=== PATIENT | female | born 1985 | race Two or more races ===

== ENCOUNTER → 2016-04-27 | Outpatient (CLI) | payer OTHER ==
--- NOTE | 2016-04-27 16:38 | RAD ---
Thyroid ultrasound, 04/27/2016: History: Right neck mass The right lobe of the gland measures 5.5 x 2.2 x 2.0 cm while the left lobe of the gland measures 4.2 x 1.4 x 1.9 cm. There is a 2.3 x 1.6 x 1.7 cm mass in the midportion of the right lobe of the gland. It demonstrates heterogeneous solid and cystic components. There is internal color flow. No thyroid calcifications are seen. No other thyroid mass is evident. IMPRESSION: Moderate sized complex mass in the right lobe of the thyroid gland as described above. The sonographic characteristics of this mass are nonspecific. Ultrasound-guided biopsy should be considered for further evaluation.
== END | disposition home or self-care (01) ==
LOC: US 15:53
PROVIDERS: ATTEND Family Medicine
DX: E07.9 Disorder of thyroid, unspecified (principal)
CPT/HCPCS: 76536

== ENCOUNTER 2016-05-10 13:17 | Emergency (ER) | payer OTHER ==
[~2016-05-10] VITALS: Ht 154.9 cm; Wt 56.7 kg
[~2016-05-10 13:17] MED LIST changes: -METH-37 PO; -TRAM-29 PO
[2016-05-10 13:31] VITALS: BP 129/72
[2016-05-10 15:13] LABS: BILIRUBIN,URINE NEGATIVE (NEG); GLUCOSE,URINE NEGATIVE (NEG); NITRITE,URINE NEGATIVE (NEG); PH,URINE 6.5; PROTEIN,URINE NEGATIVE (NEG-TRACE); UROBILINOGEN,URINE 0.2 mg/dL (0.2 mg/dL)
[2016-05-10 15:21] LABS: BACTERIA,URINE 0 /HPF (0-FEW); RBC,URINE 0 /HPF (0-2); SQUAMOUS EPITHELIAL CELL,UR FEW /LPF; WBC,URINE 0 /HPF (0-4)
--- NOTE | 2016-05-10 15:34 | PHYS DOC ---
Past Medical History Past Medical History: Other Additional Past Medical Histor: chronic back pain,"lump in thyroid" Past Surgical History: Other Additional Past Surgical Histo: thyroid biopsy Additional Information: Nonsmoker Alcohol Use: None Drug Use: None Adult General Chief Complaint Chief Complaint: BACK PAIN - NO INJURY [facility] HPI Patient is a 30 year old female who presents with chronic low back pain, worse over the last week. She has pain on both sides of the spine without radiation of the pain. She denies any injury. She has urinary frequency without dysuria. She denies any incontinence, saddle anesthesia, focal weakness or numbness. He denies nausea, vomiting, or abdominal pain. Review of Systems Review of Systems Constitutional: Denies fever or chills. [] Eyes: Denies change in visual acuity, redness, or eye pain. [] HENT: Denies ear pain, nasal congestion or sore throat. [] Respiratory: Denies cough or shortness of breath. [] Cardiovascular: Denies chest pain, palpitations or edema. [] GI: Denies abdominal pain, nausea, vomiting, bloody stools or diarrhea. [] : Denies dysuria, hematuria. Reports urinary frequency. Musculoskeletal: Denies joint pain. Reports low-back pain. Integument: Denies rash or skin lesions. [] Neurologic: Denies headache, focal weakness or sensory changes. Denies incontinence or saddle anesthesia. Endocrine: Denies polyuria or polydipsia. [] Psych: Denies anxiety or depression. [] All systems reviewed and negative unless otherwise stated in the HPI. Allergies Allergies Allergies Coded Allergies Type Severity Reaction Last Updated Verified No Known Drug Allergies 05/10/16 No Physical Exam Physical Exam Constitutional: Well developed, well nourished, no acute distress, non-toxic appearance. [] HENT: Normocephalic, atraumatic, oropharynx moist. [] Eyes: PERRLA, EOMI, conjunctiva normal, no discharge. [] Neck: Normal range of motion, no tenderness, supple, no stridor. [] Cardiovascular: Heart rate regular rhythm, no murmur. [] Lungs & Thorax: Bilateral breath sounds clear to auscultation without wheezes, rales, or rhonchi. [] Abdomen: Bowel sounds normal, soft, no tenderness, no masses, no pulsatile masses. [] Skin: Warm, dry, no erythema, no rash. [] Back: Lumbar midline tenderness, no CVA tenderness. Bilateral lumbar paraspinal muscle tenderness with spasm. Extremities: No tenderness, ROM intact, no edema. Distal pulses equal bilaterally. Light touch sensation intact and equal in bilateral lower extremities. Neurologic: Alert and oriented X 3, normal motor function, normal sensory function, no focal deficits noted. The patient walks with a normal steady gait without assistance. Psychologic: Affect normal, judgement normal, mood normal. [] Current Patient Data Vital Signs Vital Signs Date Time Temp Pulse Resp B/P Pulse Ox O2 Delivery O2 Flow Rate FiO2 05/10/16 13:31 98.3 65 18 129/72 100 Room Air 98.3 Lab Values Laboratory Tests Test 05/10/16 14:12 05/10/16 15:06 POC Urine HCG, Qualitative Hcg negative (Negative) Urine Collection Type Unknown Urine Color Yellow Urine Clarity Clear Urine pH 6.5 Urine Specific [place] 1.015 Urine Protein Negativemg/dL (NEG-TRACE) Urine Glucose (UA) Negativemg/dL (NEG) Urine Ketones (Stick) Negativemg/dL (NEG) Urine Blood Negative (NEG) Urine Nitrite Negative (NEG) Urine Bilirubin Negative (NEG) Urine Urobilinogen Dipstick 0.2mg/dL (0.2 mg/dL) Urine Leukocyte Esterase Negative (NEG) Urine RBC 0/HPF (0-2) Urine WBC 0/HPF (0-4) Urine Squamous Epithelial Cells Few/LPF Urine Bacteria 0/HPF (0-FEW) Urine Mucus Slight/LPF EKG EKG [] Radiology/Procedures Radiology/Procedures [] Course & Med Decision Making Course & Med Decision Making Pertinent Labs and Imaging studies reviewed. (See chart for details) [] Dragon Disclaimer Dragon Disclaimer This electronic medical record was generated, in whole or in part, using a voice recognition dictation system. Departure Departure Impression: Primary Impression: Low back pain Disposition: 01 HOME, SELF-CARE Condition: STABLE Referrals: SOL RICE MD (PCP) Patient Instructions: Back Pain, Adult, [id number] Additional Instructions: Your urine does not show any sign of infection causing your back pain. Please take the prescribed medications as directed. Do not drive or operate heavy machinery while taking these medications. Please follow-up with your primary care doctor for evaluation of your chronic back pain. You may require an MRI, which can be scheduled as an outpatient. Return to the emergency department if you have any new or concerning symptoms. Scripts Methocarbamol (Robaxin)500 Mg [id number] Mg PO QID #20 TAB Prov:ZAINA HURTADO 05/10/16 Tramadol Hcl (Ultram)50 Mg [id number] Mg PO Q6H PRN PAIN #20 TAB Prov:ZAINA HURTADO 05/10/16 Problem Qualifiers Primary Impression: Low back pain Chronicity: chronic Back pain laterality: bilateral Sciatica presence: without sciatica Qualified Code: M54.5 - Low back pain ZAINA HURTADO May 10, 2016 15:34
[2016-05-10] MEDS ORDERED: TRAM-29 PO (15:48)
[2016-05-10] MEDS ORDERED: METH-37 PO (15:48)
== END 2016-05-10 16:09 | disposition home or self-care (01) ==
LOC: ER 13:17
DX: G89.29 Other chronic pain (principal); M54.5 Low back pain
CPT/HCPCS: 81001; 81025; 99283

== ENCOUNTER → 2016-05-10 | Outpatient (CLI) | payer OTHER ==
[~2016-05-10] VITALS: Ht 154.9 cm; Wt 56.7 kg
[~2016-05-10] MED LIST: METH-37 PO; TRAM-29 PO; [UNRECOGNIZED DRUG - OTHER] PO
[2016-05-10 12:24] VITALS: BP 117/61
--- NOTE | 2016-05-10 13:43 | RAD ---
Ultrasound-guided right thyroid biopsy, 05/10/2016. History: Right thyroid mass Under local anesthesia, aseptic conditions and sonographic guidance a 25-gauge needle was passed into the the patient's known right thyroid nodule via an anteromedial approach. 4 separate aspirates were obtained from different portions of the nodule and sent to pathology for evaluation. Hemostasis was obtained. The patient tolerated the procedure well and left the department in good condition. The pathology results are pending.
== END | disposition home or self-care (01) ==
LOC: US 13:21
PROVIDERS: ATTEND Family Medicine
DX: E04.1 Nontoxic single thyroid nodule (principal)
CPT/HCPCS: 60300; 76942; 88173; 88305

== ENCOUNTER → 2017-02-18 | Outpatient (CLI) | payer OTHER | END | disposition home or self-care (01) | LOC: KCIC MRI 15:27 | DX: M48.54XA Collapsed vertebra, not elsewhere classified, thoracic region, initial encounter for fracture (principal); M54.5 Low back pain | CPT/HCPCS: 72146 ==

== ENCOUNTER → 2018-05-22 | Outpatient (CLI) | payer OTHER ==
[2016-05-10 12:24] VITALS: BP 117/61
[~2018-05-22] MED LIST changes: +METH-37 PO; +TRAM-48 PO
[2018-05-22 08:14] LABS: BASO # 0.1 x10^3/uL (0.0-0.2); BASO % 1 % (0-3); EOS # 0.1 x10^3/uL (0.0-0.7); EOS % 2 % (0-3); HEMATOCRIT 43.4 % (36.0-47.0); HEMOGLOBIN 14.5 g/dL (12.0-15.5); LYMPH # 3.1 x10^3/uL (1.0-4.8); LYMPH % 43 % (24-48); MEAN CORPUSCULAR HEMOGLOBIN 30 pg (25-35); MEAN CORPUSCULAR HGB CONC 33 g/dL (31-37); MEAN CORPUSCULAR VOLUME 91 fL (79-100); MONO # 0.4 x10^3/uL (0.0-1.1); MONO % 6 % (0-9); NEUT # 3.5 x10^3uL (1.8-7.7); NEUT % 49 % (31-73); PLATELET COUNT 214 x10^3/uL (140-400); RED CELL DISTRIBUTION WIDTH 12.3 % (11.5-14.5); WHITE BLOOD COUNT 7.1 x10^3/uL (4.0-11.0)
[2018-05-22 08:33] LABS: ALBUMIN 4.2 g/dL (3.4-5.0); ALBUMIN/GLOBULIN RATIO 1.2 (1.0-1.7); CALCIUM 9.2 mg/dL (8.5-10.1); CREATININE 0.7 mg/dL (0.6-1.0); GFR 97.6; POTASSIUM 3.6 mmol/L (3.5-5.1); TOTAL BILIRUBIN 0.5 mg/dL (0.2-1.0); TOTAL PROTEIN 7.7 g/dL (6.4-8.2)
[2018-05-22 08:35] LABS: CHOLESTEROL/HDL RATIO 2.5
[2018-05-22 23:08] LABS: HEMOGLOBIN A1C 5.2 % (4.8-5.6)
== END | disposition home or self-care (01) ==
LOC: LAB 07:36
PROVIDERS: ATTEND Family Medicine
DX: Z00.00 Encounter for general adult medical examination without abnormal findings (principal)
CPT/HCPCS: 36415; 80053; 80061; 83036; 84443; 85025

== ENCOUNTER → 2019-04-12 | Outpatient (CLI) | payer OTHER ==
[2016-05-10 12:24] VITALS: BP 117/61
[2019-04-12 12:59] LABS: BASO % 1 % (0-3); EOS # 0.1 x10^3/uL (0.0-0.7); EOS % 1 % (0-3); HEMATOCRIT 42.2 % (36.0-47.0); HEMOGLOBIN 13.8 g/dL (12.0-15.5); LYMPH # 1.7 x10^3/uL (1.0-4.8); LYMPH % 25 % (24-48); MEAN CORPUSCULAR HEMOGLOBIN 30 pg (25-35); MEAN CORPUSCULAR HGB CONC 33 g/dL (31-37); MEAN CORPUSCULAR VOLUME 92 fL (79-100); MONO # 0.4 x10^3/uL (0.0-1.1); MONO % 6 % (0-9); NEUT # 4.4 x10^3/uL (1.8-7.7); NEUT % 67 % (31-73); PLATELET COUNT 214 x10^3/uL (140-400); RED BLOOD COUNT 4.61 x10^6/uL (3.50-5.40); RED CELL DISTRIBUTION WIDTH 13.4 % (11.5-14.5); WHITE BLOOD COUNT 6.6 x10^3/uL (4.0-11.0)
[2019-04-12 13:20] LABS: ALBUMIN 3.6 g/dL (3.4-5.0); ALBUMIN/GLOBULIN RATIO 1.1 (1.0-1.7); CALCIUM 8.5 mg/dL (8.5-10.1); CHOLESTEROL/HDL RATIO 2.4; CREATININE 0.7 mg/dL (0.6-1.0); POTASSIUM 3.3 mmol/L (3.5-5.1); TOTAL BILIRUBIN 0.6 mg/dL (0.2-1.0)
[2019-04-13 02:08] LABS: HEMOGLOBIN A1C 5.3 % (4.8-5.6)
== END | disposition home or self-care (01) ==
LOC: LAB 12:40
PROVIDERS: ATTEND Family Medicine
DX: Z00.00 Encounter for general adult medical examination without abnormal findings (principal)
CPT/HCPCS: 36415; 80053; 80061; 83036; 84443; 85025

== ENCOUNTER → 2019-10-25 | Outpatient (CLI) | payer OTHER ==
[2016-05-10 12:24] VITALS: BP 117/61
== END | disposition home or self-care (01) ==
LOC: LAB 17:22
PROVIDERS: ATTEND Internal Medicine Pulmonary Disease
DX: Z20.828 Contact with and (suspected) exposure to other viral communicable diseases (principal)
CPT/HCPCS: U0003-CS